=== PATIENT | female | born 1955 | race Caucasian/White ===

== ENCOUNTER 2016-11-30 13:26 | Emergency (ER) | payer OTHER ==
[~2016-11-30] VITALS: Wt 84.0 kg
--- NOTE | 2016-11-30 16:40 | ERD ---
ER Documentation Chief Complaint Date/Time DATE: 11/30/16 TIME: 16:39 Chief Complaint here for papitation for the past 2 days. no pressure or pain per pt ROS All systems reviewed and are negative except as per history of present illness. Physical Exam Vitals Vital Signs Date Time Temp Pulse Resp B/P Pulse Ox O2 Delivery O2 Flow Rate FiO2 11/30/16 13:29 98.5 70 19 149/83 100 Physical Exam Const: [] Head: Atraumatic Eyes: Normal Conjunctiva ENT: Normal External Ears, Nose and Mouth. Neck: Full range of motion..~ No meningismus. Resp: Clear to auscultation bilaterally Cardio: Regular rate and rhythm, no murmurs Abd: Soft, non tender, non distended. Normal bowel sounds Skin: No petechiae or rashes Back: No midline or flank tenderness Ext: No cyanosis, or edema Neur: Awake and alert Psych: Normal Mood and Affect Procedures/MDM EKG read by me: Rate/Rhythm: Regular rate and rhythm at a rate of 64 Intervals: Normal Impression: No evidence of ischemia or arrhythmia I reviewed the EKG sent from the clinic which also shows a normal EKG with a heart rate of 69 without any arrhythmia or abnormal intervals. Departure Diagnosis: Primary Impression: Palpitations Condition: Fair Patient Instructions: Palpitations Referrals: Your doctor Additional Instructions: Llame al doctor CORNELIA y deborah alexandria TONYA PARA DENTRO DE 1-2 DOMINGO.Dgale a la secretaria que nosotros le instruimos hacer esta tonya.Avise o llame si german condicin se empeora antes de la tonya. Regresa aqui si peor o no mejor. MARY HAMILTON MD Nov 30, 2016 16:40
[2016-11-30 16:41] VITALS: BP 144/83; PULSE 68; RESP 16
== END 2016-11-30 16:47 | disposition home or self-care (01) ==
LOC: E/R 13:26
DX: R00.2 Palpitations (principal)
CPT/HCPCS: 93005

== ENCOUNTER 2018-08-24 06:32 | Emergency (ER) | END 2018-08-24 08:14 | disposition home or self-care (01) ==